=== PATIENT | female | born 1990 | race Hispanic/Latino ===

== ENCOUNTER 2017-04-29 09:35 | Emergency (ER) | payer SELFPAY ==
[~2017-04-29] VITALS: Ht 152.4 cm; Wt 50.0 kg
[2017-04-29 10:48] LABS: HEMATOCRIT 38.7 % (37.0-47.0); HEMOGLOBIN 12.9 g/dl (12.0-16.0); IMMATURE GRANULOCYTES 0.2 % (0.0-1.0); MEAN CELL VOLUME 90.6 fL CALC (80.0-100.0); MEAN CORPUSCULAR HGB 30.2 pG CALC (26.0-32.0); MEAN CORPUSCULAR HGB CONC 33.3 g/L CALC (32.0-36.0); NEUT# 2.41 thou/uL (2.00-7.15); RED BLOOD COUNT 4.27 mill/uL (4.20-5.60); RED CELL DISTRI WIDTH 12.9 % (11.5-15.5)
[2017-04-29 10:49] LABS: URINE BILIRUBIN - DIPSTICK NEGATIVE (NEGATIVE); URINE BLOOD DIPSTICK NEGATIVE (NEGATIVE); URINE COLOR YELLOW; URINE GLUCOSE - DIPSTICK NEGATIVE (NEGATIVE); URINE KETONE NEGATIVE (NEGATIVE); URINE LEUK ESTERASE NEGATIVE (NEGATIVE); URINE NITRITE - DIPSTICK NEGATIVE (Negative); URINE PH 5.5 (4.5-8.0); URINE PROTEIN - DIPSTICK NEGATIVE (NEG-TRACE); URINE SPECIFIC GRAVITY >=1.030; URINE UROBILINOGEN - DIPSTICK 0.2 E.U./dL (0.2)
[2017-04-29 11:05] LABS: ALBUMIN 4.5 g/dL (3.2-5.0); ALKALINE PHOSPHATASE 50 u/l (38-126); ANION GAP 15 (6-22 (CALC)); BUN 11 mg/dL (7-17); BUN/CREATININE RATIO 22 (12-20 (CALC)); CALCIUM 9.5 mg/dL (8.4-10.2); CARBON DIOXIDE 27 mmol/l (22-30); CHLORIDE 105 mmol/l (95-108); CREATININE 0.5 mg/dL (0.5-1.0); GFR > 60 ML/MIN (>=60 (CALC)); GFR FOR AFR.AMER. > 60 ML/MIN (>=60 (CALC)); GLUCOSE 94 mg/dL (65-105); POTASSIUM 4.1 mmol/l (3.5-5.1); SGOT/AST 12 u/l (14-36); SGPT/ALT 24 u/l (9-52); SODIUM 142 mmol/l (137-146)
[2017-04-29 11:07] LABS: URINE CLARITY CLEAR
[2017-04-29] MEDS ORDERED: TORADOL PO (16:06)
[2017-04-29 17:13] VITALS: BP 113/62
== END 2017-04-29 17:15 | disposition home or self-care (01) | DRG 392 ==
LOC: ED 09:35
PROVIDERS: Emergency Medicine
DX: R10.31 Right lower quadrant pain (principal); R30.0 Dysuria

== ENCOUNTER 2018-04-25 11:00 | Emergency (ER) | payer SELFPAY ==
[~2018-04-25] VITALS: Ht 152.4 cm; Wt 53.0 kg
[~2018-04-25 11:00] MED LIST: TORADOL PO
[2018-04-25] MEDS ORDERED: AMOXICILLIN875 MG PO (11:52)
[2018-04-25 12:00] VITALS: BP 119/67
== END 2018-04-25 12:00 | disposition home or self-care (01) | DRG 153 ==
LOC: ED 11:00
DX: J02.9 Acute pharyngitis, unspecified (principal); R50.9 Fever, unspecified